=== PATIENT | female | born 1955 ===

== ENCOUNTER 2024-04-08 02:18 | Emergency (ER) | payer MEDICARE, BC ==
--- NOTE | 2024-04-08 02:28 | ED Physician Documentation ---
PD HPI Fall - Stated complaint Stated Complaint: GLF/FACIAL INJURY - History obtained from History obtained from: Patient - Additional information Additional information: HPI from patient. Approximately 30 to 40 minutes [employer], the patient tripped over a piece of luggage at home, causing her to fall to the ground. Patient struck her face on the floor. She denies LOC but sustained facial laceration. She complains of nasal pain but denies any other pain including generalized headache, neck pain. Denies visual changes. She is not on any blood-thinning medication. Does not know when she last had tetanus immunization but she thinks it has been at least 10 years. PD PAST MEDICAL HISTORY - Past Medical History Past Medical History: Yes - Present Medications Home Medications: Ambulatory Orders Medication Instructions Recorded Confirmed Escitalopram Oxalate 20 mg PO DAILY 04/08/24 04/08/24 Metformin HCl [Metformin ER 500 mg PO DAILY 04/08/24 04/08/24 Osmotic] cephALEXin [Keflex] 500 mg PO Q6H #20 04/08/24 minoxidiL [Minoxidil] 2.5 mg PO DAILY 04/08/24 04/08/24 - Allergies Allergies/Adverse Reactions: Allergies Allergy/AdvReac Type Severity Reaction Status Date / Time bupropion [From Wellbutrin] Allergy Hives Verified 04/08/24 02:33 Penicillins Allergy Hives Verified 04/08/24 02:33 PD ED PE NORMAL - Vitals Vital signs reviewed: Yes - General General: Alert and oriented X 3, No acute distress, Well developed/nourished - HEENT HEENT: PERRL, EOMI - Neck Neck: Supple, no meningeal sign, No bony TTP PD ED PE EXPANDED - HEENT HEENT: Dentition normal, Other (left periorbital echymosis. no postauricular bruising. normal intraoral exam. aside from nasal TTP, there is no facial bony TTP including over maxillary and frontal sinuses) HEENT Visual: 1 - laceration (5 cm length laceration) 2 - laceration (superficial 0.5 cm laceration (to dermis)) 3 - tenderness Results - Vitals Vitals: Vital Signs - 24 hr 04/08/24 04/08/24 04/08/24 02:20 03:30 04:00 Temperature 36.5 C Heart Rate 69 73 75 Respiratory 18 16 16 Rate Blood Pressure 150/97 H 132/80 H 135/90 H O2 Saturation 97 98 96 Oxygen O2 Source Room air Procedures - Laceration (location) Face Length in cm: 5 Wound type: Linear, Clean Neurovascular status: Sensory intact, Motor intact, Vascular intact Tendon involvement: Tendon intact Anesthesia: Lidocaine 1% Wound preparation: Chlorhexadine, Wound explored Skin layer closure: Nylon, Interrupted (two simple interrupted sutures placed to (successfully) reapproximate small gaps after running suture was placed), Running, Size #-0 - enter number (5-0) Other: Patient tolerated well, No complications, Neurovascular intact, Tetanus booster given PD Medical Decision Making - ED course Complexity details: considered differential, d/w patient ED course: Patient presents with facial injury secondary to fall. Facial laceration repaired as above (procedure note). Tetanus immunization updated (given 0.5 units Tdap IM) as well as 500 mg p.o. cephalexin (for wound prophylaxis). P rovided printed rx for 5 days of QID cephalexin (patient's address is not entered into [employer] and registration is not in house at this time; cannot e- prescribe without address in [employer]). Return precautions reviewed. Advised to have stitches removed in 7-10 days. Departure - Departure Disposition: 01 Home, Self Care Clinical Impression: Laceration Condition: Good Instructions: ED Contusion Nasal Vs Fx No X Ray, ED Fx Nasal Laceration Sutr Or Tape, ED Laceration Facial Sutr Tape Prescriptions: cephALEXin [Keflex] 500 mg PO Q6H #20 Comments: I have electronically submitted a prescription for a 5-day course of an antibiotic (cephalexin) to the [facility] pharmacy in [place]; this is to minimize odds of the laceration becoming infected. You will need to have the stitches removed in 7 to 10 days. This can be done by your primary care provider, at an urgent care center, a walk-in clinic, or this (or any) emergency department. I repaired the laceration with a running suture as well as 2 simple interrupted stitches (I am including this information in these discharge instructions for whomever removes the stitches; please show them this information when you are being evaluated for suture removal).
[2024-04-08] MEDS: TETANUS/DIPHTHERIA/PERTUSSIS 0.5 ML SYRINGE IM ONE (02:54)
[2024-04-08] MEDS: LIDOCAINE 1% 2 ML VIAL SUBQ STA (02:55)
[2024-04-08 04:12] VITALS: BP 135/90; O2SAT 96
[2024-04-08] MEDS: cephALEXin 250 MG CAPSULE PO STA (04:21)
[2024-04-08] MEDS: BACITRACIN ZINC OINT 1 PACKET TOP STA (04:21)
== END 2024-04-08 04:30 | disposition home or self-care (01) ==
LOC: ED 02:18
DX: S01.81XA Laceration without foreign body of other part of head, initial encounter (principal); W01.0XXA Fall on same level from slipping, tripping and stumbling without subsequent striking against object, initial encounter; Y92.009 Unspecified place in unspecified non-institutional (private) residence as the place of occurrence of the external cause; Z23 Encounter for immunization; Z79.84 Long term (current) use of oral hypoglycemic drugs; Z79.899 Other long term (current) drug therapy
CPT/HCPCS: 12013; 90471; 90715; 99283; A9270